=== PATIENT | female | born 1960 | race Caucasian/White ===

== ENCOUNTER → 2018-03-31 | Outpatient (CLI) | payer MEDICARE ==
[~2018-03-31] MED LIST: FLUOXETINE; GEODON60 MG PO; HALDOL5 MG PO; MOTRIN 400400 MG/TAB PO; SEROQUEL100 MG PO; TRAZADONE HYDR100 MG PO; ZOLOFT100 MG PO; benedryl
== END ==
LOC: MC.RAD 09:51
DX: Z12.31 Encounter for screening mammogram for malignant neoplasm of breast (principal); Z98.890 Other specified postprocedural states

== ENCOUNTER 2019-09-02 09:26 | Outpatient (CLI) | payer MEDICARE ==
[2019-09-02] VITALS (11 sets, daily range): BP systolic 113–138; BP diastolic 59–91; PULSE 65–77
[~2019-09-02] VITALS: Ht 157.5 cm; Wt 47.5 kg
[~2019-09-02 09:26] MED LIST changes: +BUSPAR10 MG PO; +FLONASEALLERGY NS; +PROZAC 20MG20 MG PO; +TYLENOL 500MG500 MG PO; +ULTRAM 50MG TAB50 MG PO
--- NOTE | 2019-09-02 10:35 | NUR ---
PT WAS GIVEN 0.5MG VERSED AND 25 MCG FENTANYL
--- NOTE | 2019-09-02 10:40 | NUR ---
PROCEDURE IS COMPLETED. MONITORING EQUIPMENT REMOVED. PT TRANSFERS SELF TO CART AND TAKEN TO [facility].
--- NOTE | 2019-09-02 12:57 | NUR ---
Discharge instructions given to pt.Pt verbalizes understanding. INT removed,catheter tip intact.pt escorted out by this nurse.
== END 2019-09-02 13:40 | disposition home or self-care (01) ==
LOC: COL.RAD 09:26
DX: R91.8 Other nonspecific abnormal finding of lung field (principal)
CPT/HCPCS: J2250; J3010

== ENCOUNTER 2019-10-11 08:10 | Day surgery (SDC) | payer MEDICARE ==
[~2019-10-11] VITALS: Ht 154.9 cm; Wt 48.0 kg
[2019-10-11 08:31] VITALS: BP 96/53; PULSE 74; TEMP 98.2
[2019-10-11 11:28] VITALS: BP 122/58; PULSE 74; TEMP 98.1
--- NOTE | 2019-10-11 11:28 | NUR ---
The patient arrived back to [facility] from the operating room at this time. The patient appears alert and oriented and denies any surgical site pain at this time. The patient's incisions to her right upper chest and neck appear clean, dry and intact and are covered with whitfield set. Post operative vital signs were started at this time. The patient still needs to have her portable chest x-ray completed to check placement and radiology has been notified. The patient requests to try some apple juice and a muffin after the x-ray has been completed and read by the doctor. Call light is iwthin reach. Will continue to monitor the patient.
[2019-10-11 11:43] VITALS: BP 92/44; PULSE 76
--- NOTE | 2019-10-11 11:43 | NUR ---
Dr. Perez has read the chest x-ray and the patient was given the food and drink as requested. Vital signs appear stable. Call light remains within reach. Will continue to monitor the patient.
[2019-10-11 11:58] VITALS: BP 100/52; PULSE 74
--- NOTE | 2019-10-11 11:58 | NUR ---
The patient ambulated to the bathroom with the stand by assistance of one and appeared to tolerate the activity well.
[2019-10-11] MEDS ORDERED: NORCO 325 MG-51 TAB PO (12:07)
[2019-10-11 12:13] VITALS: BP 98/41; PULSE 76
--- NOTE | 2019-10-11 12:15 | NUR ---
Discharge instructions were reviewed with the patient at this time. She verbalized understanding and has no questions for the nurse at this time. The patient's IV to her left hand was removed and a pressure dressing was applied to the site. The nurse instructed the patient to call her ride, get dressed and notify the staff when she is ready to be escorted out.
--- NOTE | 2019-10-11 12:30 | NUR ---
The patient was escorted out via wheelchair to a private vehicle by FER Lindsey. The patient's belongings and discharge paperwork were sent with her. The patient's friend is present to drive her home.
== END 2019-10-11 12:30 | disposition home or self-care (01) ==
LOC: SDCO 08:10
DX: C34.91 Malignant neoplasm of unspecified part of right bronchus or lung (principal); F32.9 Major depressive disorder, single episode, unspecified; F20.0 Paranoid schizophrenia; F41.9 Anxiety disorder, unspecified; Z79.899 Other long term (current) drug therapy; Z80.9 Family history of malignant neoplasm, unspecified; Z83.3 Family history of diabetes mellitus; Z82.49 Family history of ischemic heart disease and other diseases of the circulatory system; Z88.1 Allergy status to other antibiotic agents; Z87.891 Personal history of nicotine dependence; C79.51 Secondary malignant neoplasm of bone; C78.7 Secondary malignant neoplasm of liver and intrahepatic bile duct
CPT/HCPCS: C1788; J0690; J1644; J2704; J3010; J7120

== ENCOUNTER → 2020-06-29 | Outpatient (CLI) | payer MEDICARE ==
[~2020-06-29] VITALS: Ht 154.9 cm; Wt 49.5 kg
[~2020-06-29] MED LIST changes: +NORCO 325 MG-51 TAB PO; +PRILOSEC 20MG20 MG PO; +TOPROL XL 25MG25 MG PO
[2020-06-29 11:33] VITALS: BP 109/65; PULSE 94
[2020-06-29 12:45] VITALS: BP 109/65; PULSE 94
[2020-06-29 13:06] LABS: PLEURAL FLUID RBC 42000 /mm3 (0-0); PLEURAL FLUID WBC 431 /mm3
[2020-06-29 13:08] LABS: TOTAL PROTEIN,PLEURAL FLUID 3.6 gm/dL
[2020-06-29 13:10] LABS: PLEURAL FLUID COLOR RED
[2020-06-29 13:11] LABS: PLEURAL FLUID APPEARANCE CLOUDY
== END ==
LOC: COL.RAD 10:43
PROVIDERS: Internal Medicine
DX: C34.11 Malignant neoplasm of upper lobe, right bronchus or lung (principal)

== ENCOUNTER → 2020-07-16 | Outpatient (CLI) | payer MEDICARE ==
[~2020-07-16] VITALS: Ht 154.9 cm; Wt 48.0 kg
[~2020-07-16] MED LIST changes: +BENADRYL25 M2 PO; +FIRST-MOUTHWASH1 KIT PO; +NYSTATIN OR100 MU/ML PO
[2020-07-16 07:15] VITALS: BP 93/60; PULSE 99
--- NOTE | 2020-07-16 09:16 | NUR ---
procedure cancelled. fluid is loculated. pt rescheduled for 07/17/20 at 1000 for doppler of the left leg. reddish and swollen
== END ==
LOC: COL.RAD 07:05
DX: C34.90 Malignant neoplasm of unspecified part of unspecified bronchus or lung (principal)

== ENCOUNTER 2020-07-17 09:58 | Inpatient (IN) | payer MEDICARE ==
[~2020-07-17] VITALS: Ht 154.9 cm; Wt 49.3 kg
[~2020-07-17 09:58] MED LIST changes: -FIRST-MOUTHWASH1 KIT PO
--- NOTE | 2020-07-17 11:48 | NUR ---
Patient arrived to the floor at this time. No immediate complaints of pain or discomfort. She is now settled and comfortable in bed. Currently awaiting orders from admitting provider. She is aware of her POC and her reason for admission. Some anxiety is evident but patient has been plesant and cooperative. No IV acess at this time, patient states that she has a port for access, this will be used. Patient ambulates well, does report SOB on exersion but does not think the bathroom is too far. Will continue admission, await orders and continue to montior the patient.
[2020-07-17 12:06] VITALS: BP 110/63; PULSE 77; TEMP 97.3
[2020-07-17] MEDS ORDERED: FIRST-MOUTHWASH1 KIT PO (13:08)
[2020-07-17 14:53] LABS: MEAN CELL VOLUME 96 fl (80.0-100.0); MEAN CORPUSCULAR HGB CONC 32 g/dl (33.0-37.0); MEAN PLATELET VOLUME 10.1 fl (7.4-10.4); PLATELET COUNT 284 K/mm3 (130-400); RED BLOOD COUNT 2.98 M/mm3 (4.10-5.30); REDCELL DISTRIBUTION WIDTH-CV 15.1 % (11.5-14.5)
[2020-07-17 15:01] LABS: HEMATOCRIT 28.6 % (37.0-47.0); MEAN CORPUSCULAR HEMOGLOBIN 30 pg (27.0-31.0)
[2020-07-17 15:35] LABS: EOSINOPHIL 3 % (0-4); LYMPHOCYTE 44 % (20.0-51.0); NEUTROPHILS 36 % (42.0-75.2)
[2020-07-17 15:36] LABS: ANISOCYTOSIS 1+; HYPOCHROMIA 2+; PLATELET ESTIMATE NORMAL (NORMAL)
[2020-07-17 16:03] LABS: INR 1.1 (0.8-3.0); PROTHROMBIN TIME 12.3 SECONDS (9.7-12.8)
--- NOTE | 2020-07-17 16:12 | NUR ---
Patient has remained stable since arriving to the floor. Heparin drip was delayed due to posible IVC filter placement this afternoon but other procedures caused delays that forced pt have procedure tomorrow. Heparin drip to be initiated at this time right after peripheral draw as both draws done from port hemolized and were unusable. Patient is comfortable at this time and is aware of her POC. Will continue to monitor. Call light is in reach.
[2020-07-17 16:19] VITALS: BP 131/66; PULSE 96; TEMP 98.5
[2020-07-17 17:21] LABS: ALBUMIN 3.1 gm/dL (3.5-5.0); BILIRUBIN,TOTAL 0.5 mg/dL (0.0-1.0); CALCIUM 8.6 mg/dL (8.4-10.2); CREATININE, serum 0.69 (0.52-1.25); POTASSIUM 3.2 mmol/L (3.4-5.0); TOTAL PROTEIN 6.4 gm/dL (6.4-8.2)
--- NOTE | 2020-07-17 20:00 | NUR ---
PATIENT WAS RECEIVED WEAK IN BED ON POOM AIR.ON CONTINUOS IV HEPARIN,DUE MEDS GIVEN,ASSESSMENT DONE.NO NEEDS AT THIS TIME
[2020-07-17 20:10] VITALS: BP 117/56; PULSE 84; TEMP 98.2
[2020-07-18] VITALS (12 sets, daily range): BP systolic 106–136; BP diastolic 46–72; PULSE 80–93; TEMP 98–98.4
--- NOTE | 2020-07-18 06:07 | NUR ---
PATIENT HAD A RESTFUL NIGHT.HAS A HEPARIN DRIP IN GOOD PROGRESS,PATIENT IS ON ROOM AIR.PATIENT IS FOR IVC FILTER FIXING SOMETIME TODAY.NO CONCERNS AT THIS TIME.
--- NOTE | 2020-07-18 07:05 | NUR ---
Report with Bob RN and FER Chandra. Pt awake and alert, reports ordering breakfast but pt reminded of no food or drink allowed right now d/t planned procedure. No further needs reported. Call light in reach.
--- NOTE | 2020-07-18 07:29 | NUR ---
record label intern nurse in room to turn off Heparin infusion for procedure.
--- NOTE | 2020-07-18 07:45 | NUR ---
Pt to component lab tech for procedure via bed accompanied by FER Gomez.
--- NOTE | 2020-07-18 07:55 | NUR ---
SEE MERGE DOCUMENTATION FOR MEDICATION ADMINISTRATION TIMES AND INTRA/POST PROCEDURE SEDATION ASSESSMENTS.
--- NOTE | 2020-07-18 08:45 | NUR ---
Pt back to room following procedure via bed, A&O x 4, denies pain at this time, VSS. Dressing over right groin site CDI, soft to palpation. Swelling to left lower ext. IV to left forearm and PAC to right chest both patent and no s/s of complications. Heparin infusion remains off at this time to total 4 hours stopped. POC for bedrest x 2 hours reviewed with pt. No further needs reported. Call light in reach.
[2020-07-18 09:11] LABS: MEAN CELL VOLUME 99 fl (80.0-100.0); MEAN CORPUSCULAR HGB CONC 30 g/dl (33.0-37.0); MEAN PLATELET VOLUME 9.3 fl (7.4-10.4); PLATELET COUNT 308 K/mm3 (130-400); RED BLOOD COUNT 2.97 M/mm3 (4.10-5.30); REDCELL DISTRIBUTION WIDTH-CV 14.8 % (11.5-14.5)
[2020-07-18 09:12] LABS: HEMATOCRIT 29.5 % (37.0-47.0); HEMOGLOBIN 8.8 g/dl (12.5-16.0); MEAN CORPUSCULAR HEMOGLOBIN 30 pg (27.0-31.0)
[2020-07-18 09:24] LABS: ALBUMIN 2.7 gm/dL (3.5-5.0); BILIRUBIN,TOTAL 0.4 mg/dL (0.0-1.0); CALCIUM 8.1 mg/dL (8.4-10.2); CREATININE, serum 0.67 (0.52-1.25); POTASSIUM 3.3 mmol/L (3.4-5.0); TOTAL PROTEIN 5.7 gm/dL (6.4-8.2)
--- NOTE | 2020-07-18 10:16 | NUR ---
Initial visit; Patient thanked Police Patrol Lieutenant for looking in on her, offering prayer and keeping her in Police Patrol Lieutenant's prayers. Police Patrol Lieutenant will follow up.
--- NOTE | 2020-07-18 13:14 | NUR ---
Heparin infusion restarted per verbal order to be off x 4 hours. Rate started again at 9 m/hr as previous with 1000 unit bolus administered per protocol. Pt reports leg pain increasing, requesting Tylenol which is administered per orders.
--- NOTE | 2020-07-18 14:19 | NUR ---
ALFREDO met with the patient to discuss discharge plan. The patient lives alone in [place]. She reports that she is normally independent with ADLs and does not have any DME. The patient's PCP is Dr. Marta Coats and she receives her medications from [facility]. She reports no difficulties obtaining her meds. The patient does not have a DPOA-HC, but she was interested in obtaining a form. ALFREDO provided. She states that she is and that she has one child: Sherman Antony (ph#[phone]). Sherman lives in [place], [place]. The patient states that she is still in contact with him and emails him from time to time. SW encouraged the patient to complete a DPOA-HC and informed her how Sherman would be her next of kin. The patient verbalized understanding. The patient plans to return home upon discharge, but is concerned about getting around at home. She states that she was extremely short of breath before coming into the hospital and it made doing things more difficult. ALFREDO discussed home health services. The patient was interested in home health and chose [facility]. ALFREDO contacted and faxed a referral to Ashtyn at [facility]. Awaiting screen. ALFREDO asked the hospitalist for PT/OT to be ordered. ALFREDO contacted and updated the patient's son, Sherman. SW to continue to follow.
--- NOTE | 2020-07-18 18:56 | NUR ---
Report with FER Chandra and FER Rojas. Pt sitting up in bed, denies needs at this time. Call light in reach.
--- NOTE | 2020-07-18 22:34 | NUR ---
PATIENT WAS RECEIVED CALM IN BED ON HEPARIN DRIP,DUE MEDS GIVEN,ASSESSMENT DONE.NO OTHER NEEDS AT THIS TIME.
[2020-07-19 00:59] VITALS: BP 98/53; PULSE 76; TEMP 98
[2020-07-19 01:17] VITALS: BP 107/58
[2020-07-19 08:43] LABS: COLLECTION METHOD CLEAN CATCH
[2020-07-19 08:44] LABS: PH 7 (5-8); SQUAMOUS EPITHELIAL 0-2 /hpf; URINE APPEARANCE Clear; URINE BACTERIA Rare /hpf; URINE BILIRUBIN Negative (NEGATIVE); URINE BLOOD Negative (NEGATIVE); URINE COLOR Straw; URINE GLUCOSE Negative (NEGATIVE); URINE KETONE Negative (NEGATIVE); URINE LEUKOCYTE ESTERASE Negative (NEGATIVE); URINE NITRATE Negative (NEGATIVE); URINE PROTEIN(semi-quant) Negative (NEGATIVE); URINE RBC 0-2 /hpf; URINE UROBILINOGEN Negative (NEGATIVE)
[2020-07-19 09:07] VITALS: BP 108/62; PULSE 84; TEMP 98.4
[2020-07-19] MEDS ORDERED: LOVENOX 8080 MG/0.8 SQ ×2 (10:15)
--- NOTE | 2020-07-19 11:22 | NUR ---
Ups Driver attended clinical rounds with the team and patient will discharge home today with Home Health services. Patient will also discharge on once daily Lovenox injections. ALFREDO contacted Ashtyn at [facility] who advised they can accept referral sent yesterday. ALFREDO met with patient to follow up. Patient states she is feeling okay about Lovenox injections. Patient does not have prescription coverage and utilizes both [facility] and [facility]. ALFREDO looked up Good RX prices for 30 day supply of Lovenox injections. [facility] is $334.21 and [facility] is $184.92. Patient states she can afford the $184.92 and would like the prescription for Lovenox to be sent to [facility]. Patient is unsure how to download GoodRX arvin on her phone so ALFREDO provided GoodRX card. ALFREDO spoke with CYNTHIA Boston to request Lovenox prescription be sent to [facility] as it is more affordable for patient. ALFREDO faxed discharge orders to Ashtyn at [facility]. Patient states she has a ride home today at discharge. No additional needs at this time.
--- NOTE | 2020-07-19 12:31 | NUR ---
patient does not qualify for home o2, 95% spo2 during exercise.
--- NOTE | 2020-07-19 13:33 | NUR ---
Patient teaching provided on how to administer Lovenox subq. Patient resting with bed in lowest position and call light in place.
--- NOTE | 2020-07-19 13:45 | NUR ---
Patient being discharged, orders/instructions disscussed with patient, instructed to follow up with PCP/Onocology/Sx as scheduled, gave demonstration on Lovenox injections and patient gave return demonstartion, script for Lovenox sent to [facility] pharmacy, instructed to monitor for bleeding issues at home while on blood thinner, PORT de-accessed by student nurse and instructer, tele removed, patient is leaving with family/friend, I escorted her out the door by wheelchair
--- NOTE | 2020-07-19 14:07 | NUR ---
Primary nurse was assisted with [id number] patient care by [facility] [employer] ADN student Sonali Montemayor and [employer] [employer] ADM instructor Maranda Ramirez RN-BC.
== END 2020-07-19 14:53 | disposition home health service (06) | DRG 300 ==
LOC: COL.VAS 09:58 → MEDICAL 11:23
PROVIDERS: ADMIT Student in an Organized Health Care Education/Training Program
PROC: 06H03DZ Insertion of Intraluminal Device into Inferior Vena Cava, Percutaneous Approach (ICD-10-PCS; principal; 2020-07-18)
DX: I82.4Z2 Acute embolism and thrombosis of unspecified deep veins of left distal lower extremity (principal); C79.51 Secondary malignant neoplasm of bone; C78.7 Secondary malignant neoplasm of liver and intrahepatic bile duct; J91.0 Malignant pleural effusion; E44.1 Mild protein-calorie malnutrition; I82.422 Acute embolism and thrombosis of left iliac vein; E87.6 Hypokalemia; M79.89 Other specified soft tissue disorders; F32.9 Major depressive disorder, single episode, unspecified; D64.9 Anemia, unspecified; F41.9 Anxiety disorder, unspecified; Z79.1 Long term (current) use of non-steroidal anti-inflammatories (NSAID); Z85.118 Personal history of other malignant neoplasm of bronchus and lung; Z87.891 Personal history of nicotine dependence
CPT/HCPCS: 99232-AI; 99239; J1644; J1650; J2250; J7120; Q9967

== ENCOUNTER 2020-09-10 10:13 | Inpatient (IN) | payer MEDICARE, OTHER ==
[~2020-09-10] VITALS: Ht 154.9 cm; Wt 38.6 kg
[~2020-09-10 10:13] MED LIST changes: +ELIQUIS 5MG PO; +FIRST-MOUTHWASH1 KIT PO; +LOVENOX 8080 MG/0.8 SQ; +PERCOCET 325 MG1 TA2 PO
[2020-09-10 11:29] LABS: BASO % 0.1 % (0.0-2.0); GRAN # 15.9 (1.4-6.5); GRAN % 89.8 % (42.2-75.2); HEMATOCRIT 28.8 % (37.0-47.0); HEMOGLOBIN 8.7 g/dl (12.5-16.0); LYMPH # 0.6 (1.2-3.4); LYMPH % 3.4 % (20.0-51.0); MEAN CELL VOLUME 90 fl (80.0-100.0); MEAN CORPUSCULAR HEMOGLOBIN 27 pg (27.0-31.0); MEAN CORPUSCULAR HGB CONC 30 g/dl (33.0-37.0); MEAN PLATELET VOLUME 10.1 fl (7.4-10.4); MONO # 1.1 (0.1-0.6); MONO % 5.9 % (1.7-9.3); PLATELET COUNT 166 K/mm3 (130-400); REDCELL DISTRIBUTION WIDTH-CV 17.2 % (11.5-14.5)
[2020-09-10 11:47] LABS: ALBUMIN 2.9 gm/dL (3.5-5.0); BILIRUBIN,TOTAL 0.6 mg/dL (0.0-1.0); CALCIUM 8.1 mg/dL (8.4-10.2); CREATININE, serum 0.77 (0.52-1.25); TOTAL PROTEIN 5.7 gm/dL (6.4-8.2)
[2020-09-10 12:03] LABS: POTASSIUM 2.6 mmol/L (3.4-5.0); TROPONIN-I 0.064 ng/mL (0.000-0.035)
[2020-09-10 15:32] LABS: COLLECTION METHOD CLEAN CATCH
[2020-09-10 15:43] LABS: MUCOUS Present /lpf; PH 6 (5-8); SQUAMOUS EPITHELIAL 20-50 /hpf; URINE APPEARANCE Hazy; URINE BACTERIA None Seen /hpf; URINE BILIRUBIN Negative (NEGATIVE); URINE BLOOD 1+ (NEGATIVE); URINE COLOR Yellow; URINE GLUCOSE Negative (NEGATIVE); URINE KETONE Negative (NEGATIVE); URINE LEUKOCYTE ESTERASE Trace (NEGATIVE); URINE NITRATE Negative (NEGATIVE); URINE PROTEIN(semi-quant) Negative (NEGATIVE); URINE RBC 0-2 /hpf; URINE UROBILINOGEN Negative (NEGATIVE)
[2020-09-10 17:16] VITALS: BP 91/61; PULSE 98; TEMP 97.6
--- NOTE | 2020-09-10 19:00 | NUR ---
PLEUREX DRAINED, 75ML OF SEROUS SANGUINOUS FLUID AT SHIFT CHANGE.
[2020-09-10 19:03] VITALS: BP 92/57; PULSE 106; TEMP 97.7
--- NOTE | 2020-09-10 19:28 | NUR ---
Pleurix drain accessed and drained. Approximately 75 mls of bloody fluid drained from patient. Pt tolerated well.
--- NOTE | 2020-09-10 19:29 | NUR ---
PT RESTING COMFORTABLY IN BED AT THIS TIME. REPORT GIVEN TO FER MARTINEZ.
--- NOTE | 2020-09-10 20:19 | NUR ---
Awake,alert,oriented x 4, shob noted at rest, O2 sat on room air mid 80's, O2@ 2L per NC added and SPO2 increased to 93%, pleurex drain with dressing intact, tolerating diet well, generalized weakness noted, uses call oconnor appropriately, denies pain
[2020-09-10 23:05] VITALS: BP 97/63; PULSE 90; TEMP 97.1
[2020-09-11 02:53] VITALS: BP 100/71; PULSE 99; TEMP 97.5
[2020-09-11 06:46] LABS: BASO % 0.1 % (0.0-2.0); EOS % 0.1 % (0-4.0); GRAN # 17.6 (1.4-6.5); GRAN % 89.6 % (42.2-75.2); HEMATOCRIT 27.2 % (37.0-47.0); HEMOGLOBIN 8.2 g/dl (12.5-16.0); LYMPH # 0.7 (1.2-3.4); LYMPH % 3.6 % (20.0-51.0); MEAN CELL VOLUME 91 fl (80.0-100.0); MEAN CORPUSCULAR HEMOGLOBIN 28 pg (27.0-31.0); MEAN CORPUSCULAR HGB CONC 30 g/dl (33.0-37.0); MEAN PLATELET VOLUME 10.3 fl (7.4-10.4); MONO # 1.1 (0.1-0.6); MONO % 5.8 % (1.7-9.3); PLATELET COUNT 139 K/mm3 (130-400); RED BLOOD COUNT 2.98 M/mm3 (4.10-5.30); REDCELL DISTRIBUTION WIDTH-CV 17.4 % (11.5-14.5)
[2020-09-11 06:59] LABS: CALCIUM 7.3 mg/dL (8.4-10.2); CREATININE, serum 0.72 (0.52-1.25)
[2020-09-11 07:06] LABS: POTASSIUM 2.9 mmol/L (3.4-5.0)
[2020-09-11 07:15] LABS: TROPONIN-I 0.062 ng/mL (0.000-0.035)
[2020-09-11 07:58] VITALS: BP 96/69; PULSE 102; TEMP 97.3
--- NOTE | 2020-09-11 09:45 | NUR ---
Court Supervisor attended clinical rounds with the team. The patient is currently on contact isolation. The patient follows oncologist, Dr. Hugo and receives chemo treatment every three weeks. SW discussed goals of care with the patient. Palliative care consulted. PT/OT ordered.
[2020-09-11] MEDS ORDERED: TAXOTERE20 MG/ML (09:57)
[2020-09-11] MEDS ORDERED: CYRAMZA10 MG/ML (09:57)
[2020-09-11] MEDS ORDERED: ZOMETA4 MG/5 ML IV (09:59)
--- NOTE | 2020-09-11 10:44 | NUR ---
After Dr Thao met with patient, I was asked to go in and talk with her about goals of care. She is very SOB, even with her oxygen on, and speaks in short, sentences. We talked about her chemotherapy coming up this Thursday and how this would be the time that I would expect her to be feeling her best. She is getting weaker, food does not taste good, but she does drink Coke and Pepsi and has tried Boost and ensure. Drinking is easier to do than eating.She lives by herself and could not identify anyone who could come help her. Her son Sherman Antony has just gotten she reports. We talked about goals of care for her. She reports that she feels she needs to continue to take chemotherapy and fight her cancer. Then she asked me if she was dying. I told her that her doctors were feeling that they had done about everything that they can to help her feel better--that she is getting weaker and weaker and without improvement that we can see. I brought up advanced directives again with her because of the concern that there may come a time that she can no longer make her own decisions and we would want someone that she trusted to be able to do that for her. She did agree to complete a DPOA-HC naming her son Sherman as her DPOA-HC, witnessed by Natasha DRIVER and myself. I told her I felt she needed a rest period and that we could talk again later. I did ask the auto wash buffer to stop in to visit with her also.
--- NOTE | 2020-09-11 11:08 | NUR ---
Initial visit; Patient was receptive to spiritual care. Digital Retoucher inquired as to if patient had a advent affiliation and she stated she is Zoroastrianism. Digital Retoucher asked if she would like a visit from a Set And Exhibit Designer to which she replied that she might later. Digital Retoucher offered prayer and said the [facility] Patient thanked Digital Retoucher. changed Vangie's advent affiliation on the Census Sheet so a Set And Exhibit Designer would be called if Vangie requested a Set And Exhibit Designer or if a Set And Exhibit Designer is needed.
[2020-09-11 12:46] VITALS: BP 104/67; PULSE 103; TEMP 97.4
--- NOTE | 2020-09-11 15:27 | NUR ---
Sales And Marketing Vice President and Ginna Kendrick, Palliative Care Nurse to complete DPOA-HC form. This ALFREDO and Ginna witnessed. The patient designated her son Sherman. Hospitalist staffed with this SW regarding a family meeting. ALFREDO contacted the patient's son/DPOA-HC for a family meeting. He was agreeable to a 1200 meeting on 09/12. ALFREDO collaborted the above information with hospitalist. The patient has [facility] services. ALFREDO contacted Alma Rosa with [facility]. Alma Rosa reports the patient receives nursing services twice a week. The patient's PT services ended.
[2020-09-11 15:30] VITALS: BP 104/59; PULSE 104; TEMP 97.5
--- NOTE | 2020-09-11 16:08 | NUR ---
DISCUSSED PT'S INFECTIOUS DISEASE WITH FER CORDOVA AND PATIENT CAN COME OFF CDIFF PRECAUTIONS SINCE THE PATIENT HAS NOT HAD A BOWEL MOVEMENT IN 30 HOURS.
--- NOTE | 2020-09-11 16:38 | NUR ---
Patient reports chronic diarrhea at home. Was placed in Cdiff contact precautions upon arrival. Now +/- 36 hrs since arrival to this facility --- has had zero stools in that time frame. Will discontinue contact precautions at this point.
--- NOTE | 2020-09-11 18:02 | NUR ---
Patient has been resting majority of the day. Patient has been assisted to the bathroom a few times, only urinating. Unable to obtain stool sample. Physical therapy worked with patient briefly before she went down for abominal CT. Central line dressing changed.
[2020-09-11 19:03] VITALS: BP 98/67; PULSE 108; TEMP 97.8
--- NOTE | 2020-09-11 20:00 | NUR ---
PATIENT WAS RECEIVED FAIR IN BED ON 2L OF O2 VIA NC.DENIES PAIN DUE MEDS GIVEN.HAS REDUCED APPETITE.NO OTHER NEEDS AT THIS TIME.
--- NOTE | 2020-09-11 21:30 | NUR ---
PATIENT'S SISTER KATHLEEN UPDATED ABOUT PATIENT.
[2020-09-11 22:57] VITALS: BP 106/61; PULSE 110; TEMP 98
[2020-09-12 03:08] VITALS: BP 121/73; PULSE 120; TEMP 98
[2020-09-12 06:07] LABS: MEAN CELL VOLUME 94 fl (80.0-100.0); MEAN CORPUSCULAR HGB CONC 29 g/dl (33.0-37.0); MEAN PLATELET VOLUME 9.7 fl (7.4-10.4); PLATELET COUNT 117 K/mm3 (130-400); RED BLOOD COUNT 2.85 M/mm3 (4.10-5.30); REDCELL DISTRIBUTION WIDTH-CV 17.8 % (11.5-14.5)
[2020-09-12 06:10] LABS: HEMOGLOBIN 7.7 g/dl (12.5-16.0); MEAN CORPUSCULAR HEMOGLOBIN 27 pg (27.0-31.0)
[2020-09-12 06:11] LABS: HEMATOCRIT 26.9 % (37.0-47.0)
--- NOTE | 2020-09-12 06:16 | NUR ---
LAB CALLED FOR A CRITICAL LAB WBC 20.3.
[2020-09-12 06:25] LABS: ALBUMIN 2.5 gm/dL (3.5-5.0); BILIRUBIN,TOTAL 0.3 mg/dL (0.0-1.0); CALCIUM 7.7 mg/dL (8.4-10.2); CREATININE, serum 0.82 (0.52-1.25); POTASSIUM 4.4 mmol/L (3.4-5.0)
[2020-09-12 06:55] LABS: BAND 3 % (0-10); LYMPHOCYTE 1 % (20.0-51.0); NEUTROPHILS 92 % (42.0-75.2); PLATELET ESTIMATE DECREASED (NORMAL)
[2020-09-12 06:56] LABS: TARGET CELLS 1+
[2020-09-12 06:58] LABS: ANISOCYTOSIS 1+
[2020-09-12 07:03] VITALS: BP 105/73; PULSE 123; TEMP 97.5
--- NOTE | 2020-09-12 08:15 | NUR ---
Shift assessment complete. Pt resting in bed, A&Ox4. Heart rate elevated, rhythm regular. Lungs CTA. Abdomen distended and firm, reports tenderness to touch. NC at 2 lpm O2. Pleurx drain to right upper abdomen, gauze CDI. Ulcer to coccyx w/mepilex CDI. Right chest port w/o s/s complication. Continuing to monitor.
--- NOTE | 2020-09-12 09:43 | NUR ---
Tile Finisher attended clinical rounds with the team. Ginna Kendrick, Palliative care nurse also present. Hospitalist discussed goals of care and about the family meeting this day at noon. The patient was agreeable to the meeting.
--- NOTE | 2020-09-12 11:06 | NUR ---
I met with patient today again after she had talked with Dr Hugo and with Dr Pena. She is now aware that chemotherapy is no longer an option for her and that the doctors have very little left to offer her for treatment. Physical therapy is recommending that she not go home from their assessments. A phone call is scheduled with her DPOA-HC and son Sherman at noon today with Dr Thao and the treatment team. I spoke with Vangie today about what she understood and where her care might go from here. I spoke of hospice services, that they are covered under medicare, and could be done at a nursing facility or at the [facility]. She does report that she has a cat in her home. She offers very short, one to two word responses to my questions. She denies having questions at this time but I am not sure she would share questions or concerns at this time. She has been trying to use boost supplements but reports she much prefers Coke.
[2020-09-12 12:13] VITALS: BP 115/85; PULSE 118; TEMP 97.9
--- NOTE | 2020-09-12 12:14 | NUR ---
Family meeting held with son, patient, Dr Thao, Natasha DRIVER and Ginna Kendrick RN. Pt's son was brought up date on his mother's condition by Dr Thao and the recommendation for Hospice services. Pt did tell her son at the beginning of the meeting that she would prefer to go to the [facility] and he did support this. We will make referral to [facility] and request that they come to talk with patient here per her request. Comfort quilt provided.
--- NOTE | 2020-09-12 12:28 | NUR ---
Site Medical Director attended family meeting with the patient. Present were Dr. Thao, Ginna Kendrick, and the patient's son via speaker phone. Dr. Thao began the meeting by stating it's purpose. Due to her declining condition, the patient and the son were in agreeance with going to the [facility]. The patient would like a [facility] dental detail representative to visit. ALFREDO faxed referral. ALFREDO contacted Melania Sanderson with the [facility]. She reports that they do have availablity. The team at the [facility] will review the referral then inform this SW of decision. ALFREDO staffed with Melania about having a dental detail representative visit the patient. She will set up at time for a visit. ALFREDO contacted [facility] with Dr. Coats (patient PCP) office to provide an update. She will inform Dr. Coats of the [facility] referral. ALFREDO collaborated the above information with the patient's nurse.
--- NOTE | 2020-09-12 15:28 | NUR ---
Lazaro from the [facility] to visit the patient this day at 1530.
--- NOTE | 2020-09-12 15:53 | NUR ---
Pt seen this afternoon by Lazaro, health care social worker at [facility]. He visited with pt who reports feeling both anxious / and pain / and had removed her 02 so was also short of breath until her 02 was reapplied. Lazaro did request that we work with patient to at least start a medicaid application here. I did leave a message for Diann Rdz regarding this. So hopefully she will be able to at least start the process tomorrow. Hoping for discharge tomorrow afternoon but have not recieved a final date and time.
--- NOTE | 2020-09-12 22:20 | NUR ---
PATIENT RESTING IN BED WITH NO CONCERNS - C/O PAIN IN ABDOMEN 08/22.EVENING MEDICATIONS GIVEN PER REQUEST WITH ROXANOL 5MG. PATIENT HAS NO NEEDS AT THIS TIME.
--- NOTE | 2020-09-13 06:30 | NUR ---
PATIENT SLEPT OFF AN ON ALL NOC. PATIENT GOT UP AND AMBULATED TO BR - UNABLE TO WALK BACK TO BED AND DOES NOT APPEAR TO HAVE CONTROL OF LEG OR FOOT MOVEMENT NEEDED FOR AMBULATION. PATIENT ADVISED SHE WOULD NOT BE ABLE TO WALK TO BR AGAIN; PATIENT STATED SHE DID NOT HAVE THE ENERGY TO WALK AGAIN. PURE WICK URINARY DRAINAGE PLACED.
[2020-09-13] MEDS ORDERED: ROXANOL 20MG20 MG/ML SL (08:38)
[2020-09-13] MEDS ORDERED: TYLENOL 325MG325 MG PO (08:39)
[2020-09-13] MEDS ORDERED: SENEXON-S 50-81 EACH PO (08:40)
[2020-09-13] MEDS ORDERED: ATIVAN 0.50.5 MG/TAB PO (08:40)
[2020-09-13] MEDS ORDERED: ZOFRAN ODT8 MG PO (08:41)
[2020-09-13] MEDS ORDERED: TRANSDERM-0.5 MG/21 TD (08:41)
--- NOTE | 2020-09-13 09:22 | NUR ---
I have spoken to Diann Rdz, patient assistance program, to help pt apply for medicaid in anticipation of transfer to [facility] later today. She will hope to see her this morning.
--- NOTE | 2020-09-13 09:44 | NUR ---
MORNING SHIFT ASSESSMENT COMPLETED BY THIS NURSE AND SN BENITA. THIS NURSE AGREES AND HAS REVIEWED SN BENITA DOCUMENTED ASSESSMENT. PATIENT GIVEN AM MEDICATIONS. CALL LIGHT IN REACH. PATIENT DENIES NEEDS AT THIS TIME.
--- NOTE | 2020-09-13 09:57 | NUR ---
Diann Rdz, Financial Counselor consulted for the patient to complete Medicaid application.
--- NOTE | 2020-09-13 13:21 | NUR ---
NITHIN CATH DISCONTINUED PRIOR TO DISCHARGE TO [facility]. PATIENT TOLERATED PROCEDURE WELL. PATIENT REPOSITIONED IN BED TO EAT LUNCH. NO OTHER NEEDS AT THIS TIME.
[2020-09-13 13:37] VITALS: BP 115/85; PULSE 118; TEMP 97.9
--- NOTE | 2020-09-13 13:45 | NUR ---
The patient is to discharge today, 09/13 to the [facility]. The team, patient and the patient's son/DPOA-KALEB Whitaker are in agreeance. [facility] can transport at 1400. ALFREDO faxed scripts to [facility]. ALFREDO faxed discharge orders to Melania at the [facility]. There are no additional needs at this time.
--- NOTE | 2020-09-13 14:10 | NUR ---
PATIENT PICKED UP BY EMS TO BE TAKEN TO [facility]. PATIENT TRANSFERRED.
--- NOTE | 2020-09-13 14:37 | NUR ---
THIS NURSE ATTEMPTED TO CALL NURSING REPORT TO [facility]. NO ANSWER. VOICEMAIL LEFT WITH NUMBER FOR NURSE TO RETURN CALL.
--- NOTE | 2020-09-13 16:17 | NUR ---
THIS NURSE ATTEMPTED TO CALL REPORT A SECOND TIME. AWAITING NURSE RETURN CALL.
--- NOTE | 2020-09-13 16:46 | NUR ---
PATIENT REPORT GIVEN TO NURSE AT [facility].
== END 2020-09-13 14:10 | disposition hospice, inpatient (51) | DRG 871 ==
LOC: COL.ER 10:13 → MEDICAL 14:13
PROVIDERS: Nurse Practitioner Primary Care; Physician Assistant; ADMIT Hospitalist
DX: A41.9 Sepsis, unspecified organism (principal); I26.99 Other pulmonary embolism without acute cor pulmonale; E43 Unspecified severe protein-calorie malnutrition; J18.9 Pneumonia, unspecified organism; J96.01 Acute respiratory failure with hypoxia; Z68.1 Body mass index [BMI] 19.9 or less, adult; C78.7 Secondary malignant neoplasm of liver and intrahepatic bile duct; Z51.5 Encounter for palliative care; Z66 Do not resuscitate; C79.51 Secondary malignant neoplasm of bone; J91.0 Malignant pleural effusion; R64 Cachexia; R18.8 Other ascites; K52.1 Toxic gastroenteritis and colitis; C34.91 Malignant neoplasm of unspecified part of right bronchus or lung; D64.9 Anemia, unspecified; R11.0 Nausea; F31.9 Bipolar disorder, unspecified; E87.6 Hypokalemia; T45.1X5A Adverse effect of antineoplastic and immunosuppressive drugs, initial encounter; F41.9 Anxiety disorder, unspecified; Z86.718 Personal history of other venous thrombosis and embolism; Z20.828 Contact with and (suspected) exposure to other viral communicable diseases; Z88.2 Allergy status to sulfonamides; Z88.8 Allergy status to other drugs, medicaments and biological substances; Z20.822 Contact with and (suspected) exposure to COVID-19
CPT/HCPCS: OP; 99233-AI; 99239; A7048; G0378; J0696; J2405; J2543; J3480; J7030; Q9967